=== PATIENT | male | born 1985 | race Caucasian/White ===

== ENCOUNTER → 2020-10-04 | Outpatient (CLI) | payer OTHER | LOC: RAD 14:45 | PROVIDERS: ATTEND Family Medicine | DX: R05 Cough (principal) | CPT/HCPCS: 71046 ==

== ENCOUNTER → 2020-10-10 | Outpatient (CLI) | payer OTHER | LOC: DX 09:46 | PROVIDERS: ATTEND Family Medicine | DX: K21.9 Gastro-esophageal reflux disease without esophagitis (principal) | CPT/HCPCS: 74246 ==